=== PATIENT | female | born 1965 | race Caucasian/White ===

== ENCOUNTER 2022-06-16 09:34 | Outpatient (CLI) | payer OTHER, MEDICAID | END 2022-06-16 09:35 | disposition home or self-care (01) | LOC: CSHRAD 09:34 | PROVIDERS: ATTEND Internal Medicine | DX: R13.10 Dysphagia, unspecified (principal); K21.9 Gastro-esophageal reflux disease without esophagitis | CPT/HCPCS: 74230 ==